=== PATIENT | male | born 1955 | race African-American/Black ===

== ENCOUNTER → 2018-06-26 | Outpatient (CLI) | payer BC, OTHER ==
[2014-08-10 20:58] VITALS: BP 138/75
[~2018-06-26] MED LIST: GUAIFENESIN AC120 ML PO; METFORMIN HYDR500 M2 PO; VITAMIN D1000 IU PO; ZIAC 5/6.25MG T1 TAB PO; ZOCOR20 MG PO
[2018-06-26 07:16] LABS: EOS # 0.1 (0.04-0.40); EOS % 0.7 % (0.0-4.0); HEMATOCRIT 44.8 % (42.0-52.0); HEMOGLOBIN 15.1 g/dL (13.5-18.0); LYMPH# 3.8 (1.50-4.00); MEAN CELL VOLUME 81 fl (78-100); MEAN CORPUSCULAR HEMOGLOBIN 27 pg (27-31); MEAN CORPUSCULAR HGB CONC 34 g/dL (33-37); MEAN PLATELET VOLUME 11.3 fl (7.4-10.4); MONO # 0.6 (0.20-0.80); NEU # 2.7 (1.40-6.50); PLATELET COUNT 249 K/mm3 (130-400); RED BLOOD COUNT 5.51 M/mm3 (4.20-5.60); RED CELL DISTRIBUTION WIDTH 13.6 % (11.5-14.5); WHITE BLOOD COUNT 7.1 K/mm3 (4.8-10.8)
[2018-06-26 07:24] LABS: URINE APPEARANCE CLEAR; URINE BILIRUBIN NEGATIVE (NEGATIVE); URINE BLOOD NEGATIVE (NEGATIVE); URINE COLOR YELLOW; URINE KETONE NEGATIVE (NEGATIVE); URINE LEUKOCYTE ESTERASE NEGATIVE (NEGATIVE); URINE MUCUS PRESENT (NOT PRESENT); URINE NITRATE NEGATIVE (NEGATIVE); URINE PROTEIN(semi-quant) TRACE mg/dL (NEGATIVE); URINE UROBILINOGEN NORMAL (NORMAL); URINE WBC 0-1 /hpf (0-3)
[2018-06-26 07:38] LABS: ALBUMIN 4.6 g/dL (3.5-5.0); TOTAL BILIRUBIN 0.8 mg/dL (0.2-1.3)
[2018-06-26 08:47] LABS: ERYTHROCYTE SEDIMENTATION RATE 2 mm/hr (0-20)
[2018-06-27 00:32] LABS: TESTOSTERONE 174 ng/dL (221-716)
== END ==
LOC: LAB 06:50
PROVIDERS: Internal Medicine
DX: Z12.5 Encounter for screening for malignant neoplasm of prostate (principal); Z12.11 Encounter for screening for malignant neoplasm of colon; Z00.00 Encounter for general adult medical examination without abnormal findings; E11.9 Type 2 diabetes mellitus without complications

== ENCOUNTER → 2018-06-28 | Outpatient (CLI) | payer BC, OTHER ==
[2014-08-10 20:58] VITALS: BP 138/75
== END ==
LOC: LAB 12:32
DX: Z12.11 Encounter for screening for malignant neoplasm of colon (principal); Z00.00 Encounter for general adult medical examination without abnormal findings; E11.9 Type 2 diabetes mellitus without complications

== ENCOUNTER → 2018-07-03 | Outpatient (CLI) | payer BC, OTHER ==
[2014-08-10 20:58] VITALS: BP 138/75
== END ==
LOC: LAB 13:17
DX: Z12.11 Encounter for screening for malignant neoplasm of colon (principal); Z00.00 Encounter for general adult medical examination without abnormal findings; E11.9 Type 2 diabetes mellitus without complications

== ENCOUNTER → 2018-07-23 | Outpatient (CLI) | payer BC, OTHER ==
[2014-08-10 20:58] VITALS: BP 138/75
[2018-07-23 23:47] LABS: TESTOSTERONE 243 ng/dL (221-716)
== END ==
LOC: LAB 07:09
PROVIDERS: Internal Medicine
DX: Z00.00 Encounter for general adult medical examination without abnormal findings (principal); E11.9 Type 2 diabetes mellitus without complications

== ENCOUNTER → 2019-06-28 | Outpatient (CLI) | payer BC, OTHER ==
[2014-08-10 20:58] VITALS: BP 138/75
[2019-06-28 22:11] LABS: TESTOSTERONE 267 ng/dL (221-716)
== END ==
LOC: LAB 09:19
PROVIDERS: Internal Medicine
DX: Z00.00 Encounter for general adult medical examination without abnormal findings (principal); Z12.5 Encounter for screening for malignant neoplasm of prostate; E11.9 Type 2 diabetes mellitus without complications; E29.1 Testicular hypofunction

== ENCOUNTER → 2019-12-30 | Outpatient (CLI) | payer MEDICARE, BC, OTHER ==
[2014-08-10 20:58] VITALS: BP 138/75
[2019-12-30 10:19] LABS: EOS % 0.8 % (0.0-4.0); HEMATOCRIT 44.5 % (42.0-52.0); HEMOGLOBIN 15.2 g/dL (13.5-18.0); LYMPH# 2.2 (1.50-4.00); MEAN CELL VOLUME 82 fl (78-100); MEAN CORPUSCULAR HEMOGLOBIN 28 pg (27-31); MEAN CORPUSCULAR HGB CONC 34 g/dL (33-37); MEAN PLATELET VOLUME 11.1 fl (7.4-10.4); MONO # 0.5 (0.20-0.80); NEU # 2.5 (1.40-6.50); PLATELET COUNT 244 K/mm3 (130-400); RED CELL DISTRIBUTION WIDTH 13.9 % (11.5-14.5); WHITE BLOOD COUNT 5.3 K/mm3 (4.8-10.8)
[2019-12-30 10:40] LABS: ALBUMIN 4.3 g/dL (3.4-4.8); POTASSIUM 4.4 mmol/L (3.5-5.1)
[2019-12-30 10:41] LABS: CALCIUM 10.1 mg/dL (8.3-10.5)
[2019-12-30 10:43] LABS: TOTAL PROTEIN 7.8 g/dL (6.2-8.1)
[2019-12-30 10:45] LABS: TOTAL BILIRUBIN 0.5 mg/dL (0.2-1.2)
[2019-12-30 11:16] LABS: ERYTHROCYTE SEDIMENTATION RATE 0 mm/hr (0-20)
== END ==
LOC: LAB 10:03
PROVIDERS: Internal Medicine
DX: E11.9 Type 2 diabetes mellitus without complications (principal); E78.5 Hyperlipidemia, unspecified; I10 Essential (primary) hypertension; J43.9 Emphysema, unspecified

== ENCOUNTER → 2021-06-24 | Outpatient (CLI) | payer MEDICARE, BC, OTHER | LOC: LAB 10:59 | DX: Z20.822 Contact with and (suspected) exposure to COVID-19 (principal) ==

== ENCOUNTER → 2021-07-06 | Outpatient (CLI) | payer MEDICARE, BC, OTHER | LOC: LAB 10:43 | DX: Z20.822 Contact with and (suspected) exposure to COVID-19 (principal) ==

== ENCOUNTER → 2021-07-30 | Outpatient (CLI) | payer MEDICARE, BC, OTHER | LOC: LAB 10:27 | DX: Z12.5 Encounter for screening for malignant neoplasm of prostate (principal) ==

== ENCOUNTER → 2022-02-08 | Outpatient (CLI) | payer MEDICARE, BC, OTHER ==
[2022-02-08 12:18] LABS: BASO # 0.02 K/mm3 (0.02-0.10); EOS # 0.04 K/mm3 (0.04-0.40); EOS % 0.7 % (0.0-4.0); HEMATOCRIT 42.6 % (42.0-52.0); HEMOGLOBIN 14.3 g/dL (13.5-18.0); LYMPH# 2.47 K/mm3 (1.50-4.00); MEAN CELL VOLUME 83 fl (78-100); MEAN CORPUSCULAR HEMOGLOBIN 28 pg (27-31); MEAN CORPUSCULAR HGB CONC 34 g/dL (33-37); MEAN PLATELET VOLUME 10.2 fl (7.4-10.4); NEU # 2.59 K/mm3 (1.40-6.50); PLATELET COUNT 290 K/mm3 (130-400); RED BLOOD COUNT 5.14 M/mm3 (4.20-5.60); RED CELL DISTRIBUTION WIDTH 14.5 % (11.5-14.5); WHITE BLOOD COUNT 5.5 K/mm3 (4.8-10.8)
[2022-02-08 12:25] LABS: ALBUMIN 4.2 g/dL (3.4-4.8)
[2022-02-08 12:26] LABS: CALCIUM 10.4 mg/dL (8.3-10.5)
[2022-02-08 12:27] LABS: TOTAL PROTEIN 7.6 g/dL (6.2-8.1)
[2022-02-08 12:29] LABS: TOTAL BILIRUBIN 0.8 mg/dL (0.2-1.2)
[2022-02-08 12:34] LABS: MAGNESIUM 1.76 mg/dL (1.60-2.60)
== END ==
LOC: LAB 09:42
PROVIDERS: Internal Medicine
DX: E78.5 Hyperlipidemia, unspecified (principal); I10 Essential (primary) hypertension; K90.9 Intestinal malabsorption, unspecified; E11.9 Type 2 diabetes mellitus without complications; E23.7 Disorder of pituitary gland, unspecified; J43.9 Emphysema, unspecified

== ENCOUNTER → 2022-04-12 | Outpatient (CLI) | payer MEDICARE, BC, OTHER | LOC: LAB 08:24 | DX: E53.8 Deficiency of other specified B group vitamins (principal) ==

== ENCOUNTER → 2022-06-24 | Outpatient (CLI) | payer MEDICARE, BC, OTHER ==
[2022-06-25 00:10] LABS: PROLACTIN AMS 10.6 ng/mL (3.5-19.4)
== END ==
LOC: LAB 08:35
PROVIDERS: Internal Medicine
DX: J43.9 Emphysema, unspecified (principal); E78.5 Hyperlipidemia, unspecified; E11.9 Type 2 diabetes mellitus without complications; G47.30 Sleep apnea, unspecified; K90.9 Intestinal malabsorption, unspecified; E53.8 Deficiency of other specified B group vitamins; I10 Essential (primary) hypertension; E23.7 Disorder of pituitary gland, unspecified

== ENCOUNTER → 2024-02-01 | Outpatient (CLI) | payer MEDICARE, BC, OTHER ==
[2024-02-01 12:07] LABS: PH-URINE 6.5 (5.0 - 8.0); URINE APPEARANCE CLEAR (CLEAR); URINE BILIRUBIN NEGATIVE (NEGATIVE); URINE BLOOD TRACE (NEGATIVE); URINE COLOR YELLOW (YELLOW); URINE GLUCOSE NEGATIVE (NEGATIVE); URINE KETONE NEGATIVE (NEGATIVE); URINE LEUKOCYTE ESTERASE NEGATIVE (NEGATIVE); URINE NITRATE NEGATIVE (NEGATIVE); URINE PROTEIN(semi-quant) 1+ (NEGATIVE)
[2024-02-01 12:08] LABS: URINE MUCUS PRESENT (NOT PRESENT)
== END ==
LOC: LAB 09:51
PROVIDERS: Internal Medicine
DX: E11.9 Type 2 diabetes mellitus without complications (principal)

== ENCOUNTER → 2024-02-13 | Outpatient (CLI) | payer MEDICARE, BC, OTHER ==
[~2024-02-13] MED LIST changes: +Gadoterate 20 ML VIAL IV ONE
== END ==
LOC: RAD 07:30
DX: N28.1 Cyst of kidney, acquired (principal)
CPT/HCPCS: A9575

== ENCOUNTER → 2024-02-26 | Outpatient (CLI) | payer MEDICARE, BC, OTHER ==
[~2024-02-26] MED LIST changes: -Gadoterate 20 ML VIAL IV ONE
== END ==
LOC: LAB 10:39
DX: U07.1 COVID-19 (principal)